=== PATIENT | female | born 1960 | race Caucasian/White ===

== ENCOUNTER → 2016-07-23 | Outpatient (CLI) | payer BC ==
[2016-07-23 09:25] LABS: BASOPHILS # (AUTO) 0.03 10*3/UL; BASOPHILS % (AUTO) 0.4 % (0-1); EOSINOPHILS % (AUTO) 4.5 % (0-8); HEMATOCRIT 41.4 % (37.0-47.0); HEMOGLOBIN 13.8 g/dL (12.0-16.0); IMM GRAN % (AUTO) 0.6 % (0-5); IMM GRAN# (AUTO) 0.05 10*3/UL; LYMPHOCYTES # (AUTO) 2.38 10*3/uL; LYMPHOCYTES % (AUTO) 30.1 % (10-50); MEAN CORPUSCULAR HEMOGLOBIN 30.3 PG (27-31); MEAN CORPUSCULAR HGB CONC 33.3 g/dL (33-37); MONOCYTES # (AUTO) 0.44 10*3/UL (0.3-0.8); MONOCYTES % (AUTO) 5.6 % (5-15); NEUTROPHILS # (AUTO) 4.66 10*3/UL; NEUTROPHILS % (AUTO) 58.8 % (50-80); RDW COEFFICIENT OF VARIATION 12.5 % (11.5-14.5); RED BLOOD COUNT 4.56 10^6/uL (4.20-5.40); WHITE BLOOD COUNT 7.92 10^3/uL (4.8-10.8)
[2016-07-23 09:31] LABS: PLATELET MORPHOLOGY COMMENT NORMAL MORPHOLOGY (NORM)
[2016-07-23 09:32] LABS: ASPARTATE AMINO TRANSFERASE 27 IU/L (8-39); BILIRUBIN,TOTAL 0.5 mg/dL (0.3-1.2); BLOOD UREA NITROGEN 18 mg/dL (7-22); CALCIUM 9.3 mg/dL (8.7-10.7); CHLORIDE 104 meq/L (98-112); CREATININE 0.8 mg/dL (0.50-1.20); EST GLOMERULAR FILTRATION > 60 (>60 ml/min/1.73m(2)); GLUCOSE 116 mg/dL (78-110); HDL CHOLESTEROL 49 mg/dL (40-150); SODIUM 140 meq/L (135-145); TOTAL PROTEIN 7.3 g/dL (6.1-8.0); TRIGLYCERIDES 115 mg/dL (44-200)
[2016-07-23 10:02] LABS: HEMOGLOBIN A1C 6.29 % (4.2-6.0); MEAN BLOOD GLUCOSE (CALC) 123.457 mg/dL
== END ==
LOC: LAB 08:50
PROVIDERS: ATTEND Internal Medicine
DX: E11.9 Type 2 diabetes mellitus without complications (principal); E78.5 Hyperlipidemia, unspecified; I10 Essential (primary) hypertension
CPT/HCPCS: 36415; 80053; 80061; 82043; 82550; 83036; 84443; 85025

== ENCOUNTER → 2017-01-15 | Outpatient (CLI) | payer BC ==
[2017-01-15 11:12] LABS: HEMOGLOBIN A1C 6.38 % (4.2-6.0)
[2017-01-15 11:24] LABS: CREATININE, URINE 320.8 MG/DL (15-500)
== END ==
LOC: LAB 10:51
PROVIDERS: ATTEND Internal Medicine
DX: E11.9 Type 2 diabetes mellitus without complications (principal)
CPT/HCPCS: 36415; 82043; 83036